=== PATIENT | male | born 1965 | race Caucasian/White ===

== ENCOUNTER 2018-05-30 20:42 | Observation (INO) | payer OTHER ==
[2018-05-30] MEDS ORDERED: ASPIRIN CHEW 81 MG TABLET PO STA (21:02)
--- NOTE | 2018-05-30 21:05 | ED Physician Documentation ---
PD HPI CHEST PAIN - Stated complaint Stated Complaint: CHEST PX - Chief complaint Chief Complaint: Cardiac - History obtained from History obtained from: Patient - History of Present Illness Timing - onset: Other (This is a 53-year-old gentleman with history of single- vessel bypass to either of the left main or LAD about 3 years ago with a significant positive family history of coronary disease over the last 2 days has had substernal chest pressure radiating to the right shoulder but not the back that is worse with exertion and deep breathing. He is been inexplicably short of breath and fatigued with this as well and has had some sweats but no nausea. He is pain-free at this juncture.) Review of Systems Constitutional: reports: Reviewed and negative Ears: reports: Reviewed and negative Nose: reports: Reviewed and negative Respiratory: reports: Reviewed and negative GI: reports: Reviewed and negative : reports: Reviewed and negative PD PAST MEDICAL HISTORY - Past Medical History Past Medical History: Yes Cardiovascular: Coronary artery disease, Angina Endocrine/Autoimmune: HyPOthyroidism GI: GERD - Past Surgical History Past Surgical History: Yes Cardiovascular: CABG - Present Medications Home Medications: Ambulatory Orders Medication Instructions Recorded Confirmed Atorvastatin [Lipitor] 10 mg PO DAILY 05/30/18 05/30/18 Levothyroxine [Synthroid] 75 mcg PO QDAC 05/30/18 05/30/18 Metoprolol Tartrate 25 mg PO BID 05/30/18 05/30/18 Omeprazole 20 mg PO DAILY 05/30/18 05/30/18 - Allergies Allergies/Adverse Reactions: Allergies Allergy/AdvReac Type Severity Reaction Status Date / Time No Known Drug Allergies Allergy Verified 05/30/18 20:46 - Social History Does the pt smoke?: No Smoking Status: Never smoker Does the pt drink ETOH?: No Does the pt have substance abuse?: No - Family History Family history: reports: Non contributory - Immunizations Immunizations are current?: No PD ED PE NORMAL - Vitals Vital signs reviewed: Yes - General General: Alert and oriented X 3 (Tall and lean, frequent stuttering) - HEENT HEENT: PERRL, EOMI - Neck Neck: Supple, no meningeal sign, No bony TTP - Cardiac Cardiac: RRR, No murmur - Respiratory Respiratory: No respiratory distress, Clear bilaterally - Abdomen Abdomen: Soft, Non tender - Back Back: No CVA TTP, No spinal TTP - Derm Derm: Normal color, Warm and dry - Extremities Extremities: No edema, No calf tenderness / cord - Neuro Neuro: Alert and oriented X 3, Normal speech - Psych Psych: Normal mood, Normal affect Results - Vitals Vitals: Vital Signs - 24 hr 05/30/18 05/30/18 05/30/18 20:46 21:04 21:31 Temperature 36.4 C L Heart Rate 72 72 65 Respiratory 20 14 20 Rate Blood Pressure 118/80 135/84 H 117/81 H O2 Saturation 100 96 97 Oxygen O2 Source Room air - EKG (time done) 2053 Rate: Rate (enter#) (73) Rhythm: NSR [place]: Normal Intervals: Normal [place] QRS: Normal Ischemia: Normal ST segments Computer interpretation: Agree with computer - Labs Labs: Laboratory Tests 05/30/18 05/30/18 05/30/18 20:58 20:58 20:58 WBC 11.7 H RBC 5.18 Hgb 16.1 Hct 46.6 MCV 89.9 MCH 31.0 MCHC 34.5 RDW 13.2 Plt Count 273 MPV 7.2 L Neut # (Auto) 7.1 H Lymph # (Auto) 2.9 Jay # (Auto) 0.8 Eos # (Auto) 0.8 H Baso # (Auto) 0.1 Absolute Nucleated RBC 0.00 Nucleated RBC % 0.0 Sodium 138 Potassium 3.5 Chloride 100 L Carbon Dioxide 29 Anion Gap 9.0 BUN 19 Creatinine 1.1 Estimated GFR (MDRD) 70 L Glucose 127 H Calcium 9.0 Total Bilirubin 0.5 AST 29 ALT 38 Alkaline Phosphatase 86 Total Creatine Kinase 96 CK-MB (CK-2) 1.0 Troponin I < 0.04 Total Protein 7.6 Albumin 4.2 Globulin 3.4 Albumin/Globulin Ratio 1.2 Lipase 30 PD MEDICAL DECISION MAKING - ED course ED course: This is a 53-year-old gentleman with known coronary disease, history of single- vessel coronary bypass with exertional chest pain but also chest pain worse with deep breathing for the last 2 days with negative biomarkers and nonischemic EKG. He deserves a formal rule out plus or minus stress. [facility], [facility] no [facility] available there. Spoke with Dr. Moreau for observation here at 9:42 PM. Departure - Departure Disposition: ED Place in Observation Clinical Impression: Chest pain Qualifiers: Chest pain type: unspecified Qualified Code(s): R07.9 - Chest pain, unspecified Condition: Stable
[2018-05-30 21:16] LABS: BASOPHILS # (AUTO) 0.1 10^3/uL (0.0-0.1); BASOPHILS % (AUTO) 0.8 %; EOSINOPHILS # (AUTO) 0.8 10^3/uL (0.0-0.7); EOSINOPHILS % (AUTO) 6.9 %; HGB - HEMOGLOBIN 16.1 g/dL (14.0-18.0); LYMPHOCYTES # (AUTO) 2.9 10^3/uL (1.5-3.5); LYMPHOCYTES % (AUTO) 24.6 %; MEAN CORPUSCULAR HGB CONC 34.5 g/dL (32.0-36.0); MEAN CORPUSCULAR VOLUME 89.9 fL (80.0-94.0); MEAN PLATELET VOLUME 7.2 fL (7.4-11.4); MONOCYTES # (AUTO) 0.8 10^3/uL (0.0-1.0); MONOCYTES % (AUTO) 6.8 %; NEUTROPHILS # (AUTO) 7.1 10^3/uL (1.5-6.6); NEUTROPHILS % (AUTO) 60.9 %; PLT - PLATELET COUNT 273 10^3/uL (130-450); RED BLOOD COUNT 5.18 10^6/uL (4.70-6.10); RED CELL DISTRIBUTION WIDTH 13.2 % (12.0-15.0); WHITE BLOOD COUNT 11.7 x10^3/uL (4.8-10.8)
--- NOTE | 2018-05-30 21:19 | XRAY Report ---
Reason: chest pain Procedure Date: 05/30/2018 Accession Number: [id number] / [id number] Procedure: XR - Chest 1 View X-Ray CPT Code: 65971 FULL RESULT: EXAM: CHEST RADIOGRAPHY EXAM DATE: 05/30/2018 09:11 PM. CLINICAL HISTORY: Chest pain. COMPARISON: None. TECHNIQUE: 1 view. FINDINGS: Lungs/Pleura: No focal opacities evident. No pleural effusion. No pneumothorax. Mediastinum: Heart size is normal. Prior sternotomy noted. Other: There is a mid left clavicle fracture. IMPRESSION: Negative chest RADIA
[2018-05-30 21:28] LABS: ALBUMIN 4.2 g/dL (3.2-5.5); ALBUMIN/GLOBULIN RATIO 1.2 (1.0-2.2); BILIRUBIN,TOTAL 0.5 mg/dL (0.2-1.0); CREATININE 1.1 mg/dL (0.6-1.2); TOTAL PROTEIN 7.6 g/dL (6.7-8.2)
[2018-05-30 21:33] LABS: TROPONIN I < 0.04 ng/mL (<0.49)
[2018-05-30] MEDS ORDERED: SODIUM CHLORIDE FLUSH 0.9% 10 ML SYRINGE IVP PRN (22:25)
--- NOTE | 2018-05-30 23:10 | HISTORY & PHYSICAL EXAMINATION ---
Chief Complaint - Chief Complaint Chief Complaint: chest pain History of Present Illness - Admitted From Admitted From:: [facility] ED - History Obtained From Records Reviewed: yes History obtained from: patient - History of Present Illness HPI Comment/Other: Patient seen on 05/30/18 at 21:55pm Patient is a 53 y/o male with a significant history of a CAD s/p CABG in March of 2015 who presented to the ED with complain of chest pain/pressure. He says it feels like being bear-hugged for the past few days. He has also been more tired lately and gets dyspneic with exertion. For example climbing into his bed which he described as tall. He reports a sharp pain on the left side below his ribs. The pain resolves with rest. There is no radiation to the pain. He took a nitroglycerin tab at home with no relief. The pain/pressure resolved by the time he presented to the ED. EKG done in the ED was unremarkable for any acute coronary event. His Troponin was also negative. He is being admitted for further evaluation. He denied abd pain, nausea, vomiting or diarrhea. No fever or chills. No lower extremity edema. He denied headaches problems with balance. He stutters which he explains only happens when he is under increased stress. He has been more stressed lately as a result of increased demands at work. His stuttering began in relation to PTSD. He is a . 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 Mother: Hx of 14 stent: cardiac and peripheral vascular. Maternal grandfather: at age 53 from an PR Social History Notes: Lives at home with family. 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 Is independent of activities of daily living. Has 3 grandchildren - Substance History Use: Uses substance without health or social issues: Tobacco (chews tobacco) - POLST Patient has POLST: No POLST Status: Full Code Meds/Allgy - Home Medications Home Medications: Ambulatory Orders Medication Instructions Recorded Confirmed Atorvastatin [Lipitor] 10 mg PO DAILY 05/30/18 05/30/18 Levothyroxine [Synthroid] 75 mcg PO QDAC 05/30/18 05/30/18 Metoprolol Tartrate 25 mg PO BID 05/30/18 05/30/18 Omeprazole 20 mg PO DAILY 05/30/18 05/30/18 - Allergies Allergies/Adverse Reactions: Allergies Allergy/AdvReac Type Severity Reaction Status Date / Time No Known Drug Allergies Allergy Verified 05/30/18 20:46 Review of Systems - Constitutional Constitutional: reports: Fatigue. denies: Fever, Chills - Eyes Eyes: reports: Corrective lenses. denies: Amaurosis, Blurred vision, Vision loss, Dipolpia - Ears, Nose & Throat Ears, Nose & Throat: denies: Vertigo - Cardiovascular Cariovascular: reports: Chest pain, Exertional dyspnea, Decr. exercise tolerance. denies: Irregular heart rate, Palpitations, Edema, Lightheadedness, Syncope, Orthopnea - Respiratory Respiratory: reports: SOB with exertion. denies: Cough, Sputum production, Wheezing, Snoring, Pleuritic pain - Gastrointestinal Gastrointestinal: reports: Reflux/heartburn. denies: Abdominal pain, Abdominal distention, Constipation, Diarrhea, Nausea, Vomiting, Coffee grounds emesis - Genitourinary Genitourinary: denies: Dysuria, Frequency, Urgency, Hematuria - Musculoskeletal Musculoskeletal: denies: Muscle pain, Back pain, Muscle aches, Stiffness, Joint pain - Integumentary Integumentary: denies: Rash, Lesions, Dryness - Neurological Neurological: denies: General weakness, Headache, Dizziness, Numbness, Abnormal gait - Psychiatric Psychiatric: denies: Anxiety, Suicidal - Endocrine Endocrine: denies: Polyuria, Polydypsia - Hematologic/Lymphatic Hematologic/Lymphatic: denies: Anemia, Bruising, Petechiae Prior Level of Functionality: Lives at home with family 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 negative: Wheezes, Rales, Rhonchi Cardiovascular: positive: Regular rate & rhythm, No murmur Abdomen: positive: Non-tender, No organomegaly, Nml bowel sounds, No distention. negative: Guarding Back: positive: Nml inspection Skin: positive: Color nml, No rash, Warm, Dry. negative: Cyanosis Extremities: positive: Non-tender, Full ROM, Nml appearance, No pedal edema Neurologic/Psychiatric: positive: Oriented x3, Motor nml, Sensation nml, Slurred/abnml speech (stuttering) Conclusion/Plan - Problem List (1) Chest pain Conclusion/Plan: Trend troponin X2 more. If negative, proceed with stress test Given full dose aspirin in the ED. Will continue daily On telemetry. Hold morning metoprolol dose in anticipation of stress test Hx of CAD with CABG 3yrs ago. 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 Last stress test Jan 2015 Qualifiers: Chest pain type: unspecified Qualified Code(s): R07.9 - Chest pain, unspecified (2) CAD (coronary artery disease) Conclusion/Plan: On metoprolol (not always compliant) Aspirin full dose ordered daily On atorvastatin Qualifiers: Coronary Disease-Associated Artery/Lesion type: bypass graft, autologous vein (3) Hyperlipidemia Conclusion/Plan: On atorvastatin (4) Hypothyroidism Conclusion/Plan: On synthroid (5) GERD (gastroesophageal reflux disease) Conclusion/Plan: Protonix ordered - Lab Results Fish Bones: 05/30/18 20:58 05/30/18 20:58 Core Measures - Anticipated LOS I expect patient to be DC'd or transferred within 96 hours.: Yes - DVT/VTE - Prophylaxis VTE/DVT Device ordered at admit?: Yes VTE/DVT Prophylaxis med ordered at admit?: Yes - AMI - Statin at Admit Aspirin Prescribed on Admit: Yes
[2018-05-31] MEDS: SODIUM CHLORIDE FLUSH 0.9% 10 ML SYRINGE IVP SCH ×3 (03:17→17:01)
[2018-05-31 03:31] LABS: BASOPHILS % (AUTO) 0.4 %; EOSINOPHILS # (AUTO) 0.8 10^3/uL (0.0-0.7); EOSINOPHILS % (AUTO) 8.1 %; HGB - HEMOGLOBIN 14.9 g/dL (14.0-18.0); LYMPHOCYTES # (AUTO) 2.2 10^3/uL (1.5-3.5); LYMPHOCYTES % (AUTO) 21.1 %; MEAN CORPUSCULAR HEMOGLOBIN 30.1 pg (27.0-31.0); MEAN CORPUSCULAR HGB CONC 33.3 g/dL (32.0-36.0); MEAN CORPUSCULAR VOLUME 90.3 fL (80.0-94.0); MEAN PLATELET VOLUME 7.1 fL (7.4-11.4); MONOCYTES # (AUTO) 0.7 10^3/uL (0.0-1.0); MONOCYTES % (AUTO) 7.1 %; NEUTROPHILS # (AUTO) 6.6 10^3/uL (1.5-6.6); NEUTROPHILS % (AUTO) 63.3 %; PLT - PLATELET COUNT 245 10^3/uL (130-450); RED BLOOD COUNT 4.94 10^6/uL (4.70-6.10); RED CELL DISTRIBUTION WIDTH 13.2 % (12.0-15.0); WHITE BLOOD COUNT 10.5 x10^3/uL (4.8-10.8)
[2018-05-31 03:38] LABS: CALCIUM 8.8 mg/dL (8.5-10.3); CREATININE 1.1 mg/dL (0.6-1.2)
[2018-05-31] MEDS ORDERED: PANTOPRAZOLE 40 MG TABLET PO SCH (07:00)
[2018-05-31] MEDS ORDERED: ASPIRIN 325 MG TABLET PO SCH (08:00)
[2018-05-31] MEDS ORDERED: POLYETHYLENE GLYCOL 3350 17 GM PACKET PO SCH (09:00)
[2018-05-31] MEDS ORDERED: ENOXAPARIN 40 MG/0.4 ML SYRINGE SUBQ SCH (09:00)
[2018-05-31] MEDS ORDERED: METOPROLOL TARTRATE 25 MG TABLET PO SCH (13:00)
--- NOTE | 2018-05-31 14:09 | CARDIAC PROCEDURE NOTE ---
DATE OF SERVICE: 05/31/2018 Physician: Liseth Haq MD INDICATION: Chest pain. CARDIAC RISK FACTORS: Male gender, family history of early coronary disease, hyperlipidemia. The patient also has a history of known CAD with prior CABG. DESCRIPTION OF PROCEDURE: After signing informed consent, the patient underwent a Amanuel protocol treadmill stress test with nuclear myocardial perfusion imaging. RESTING HEART RATE: 66. Peak heart rate: 111 (66% predicted maximum heart rate for age). RESTING BLOOD PRESSURE: 114/80. Blood pressure at the end of stage 1: 135/65. Blood pressure in stage 2: dropped to 125/65 (abnormal hemodynamic response). The patient exercised for 5 minutes and 48 seconds on a Amanuel protocol treadmill stress test. He developed his typical chest discomfort "down his sternum at the scar site" at the beginning of stage 2, and he rated this 1/10. This symptom increased to 2/10 in stage II. When the blood pressure drop occurred, and with 2/10 chest pain, the exercise was stopped. He achieved 66% PMHR and 7 METS. EKG AT REST: Normal sinus rhythm, LVH with small inferior Q waves and left IVCD. EKG AT PEAK: No new ischemic ST segment changes by EKG criteria. SUMMARY 1. Poor exercise tolerance. 2. Abnormal blood pressure response to exercise, which is concerning for left main or triple vessel coronary artery disease. 3. No ischemic changes, by electrocardiogram criteria during this treadmill stress test, at 66% predicted maximum heart rate for age. 4. Nuclear images reported separately. TD: 05/31/2018 13:47 LIZETH
--- NOTE | 2018-05-31 14:16 | Nuclear Medicine Report ---
Reason: chest pain/pressure Procedure Date: 05/31/2018 Accession Number: [id number] / [id number] Procedure: NM - Myocardial Perfusion STR/RST CPT Code: FULL RESULT: EXAM: SINGLE-ISOTOPE EXERCISE STRESS TEST. SINGLE-ISOTOPE AND ONE-DAY REST/STRESS MYOCARDIAL PERFUSION SCANS WITH TOMOGRAPHIC IMAGING, QUANTITATIVE ANALYSIS, WALL MOTION ANALYSIS AND CALCULATION OF EJECTION FRACTION. EXAM DATE: 05/31/2018 01:35 PM. CLINICAL HISTORY: Chest pain/pressure. COMPARISON: None available. TECHNIQUE: A rest myocardial perfusion scan was done with tomography after the intravenous administration of 10.8 mCi Tc-99m sestamibi. After an appropriate delay, a treadmill exercise stress was performed according to department protocol. The patient exercised for 7 minutes and 42 seconds. The maximum heart rate was 111 bpm, which was 66% of the maximum predicted heart rate of 166 bpm. At approximately peak heart rate, 39.6 mCi of Tc-99m sestamibi was injected for stress myocardial perfusion scan. Motion correction was applied when appropriate. Gated tomographic images were obtained for wall motion analysis and computation of left ventricular ejection fraction. FINDINGS: On visual analysis, there is a small, mild apical perfusion defect which appears fixed between the rest and stress images allowing for slight differences in orientation of the processed images. No convincing reversible perfusion defects. Computer analysis. Summed stress score 3 Summed rest score 2 Summed difference score 1 Wall motion analysis demonstrates no focal wall motion abnormality The left ventricular end-diastolic volume is 54 cc. The left ventricular end-systolic volume is 14 cc. The left ventricular ejection fraction is calculated to be 75%. IMPRESSION: 1. The patient did not achieve adequate stress and this may affect the accuracy of this study. 2. Small mild fixed apical perfusion defect. No convincing significant reversible perfusion defects. 3. Normal left ventricular ejection fraction of 75%. 4. Normal segmental and global wall motion. 5. Normal left ventricular cavity size, no change with stress. 6. Based on computer analysis, normal study with no ischemia. Please correlate findings with stress ECG tracings and procedure notes. RADIA
--- NOTE | 2018-05-31 15:39 | Discharge Plan ---
Discharge Plan Disposition: 01 Home, Self Care Condition: Good Prescriptions: Nitroglycerin [Nitrostat] 0.4 mg SL Q5MIN PRN #30 tablet PRN Reason: Angina Aspirin [Adult Aspirin Regimen] 81 mg PO DAILY #30 tablet. Atorvastatin Calcium 80 mg PO DAILY #30 tablet Isosorbide Mononitrate ER [Imdur] 30 mg PO DAILY #30 tablet Diet: Cardiac Activity Restrictions: NO working, no lifting, rest and relax until after Cardiology follow up Additional Instructions or Follow Up instructions: You were admitted overnight for complaints of chest pain. Your myocardial perfusion scan was not completely normal, so for clarification, a call was made to your Supervisor Mending. Dr. Berto Stephenson spoke with Dr. Haq, who performed your stress test. It has been determined that you have new changes indicating a new heart attack or (myocardial infarction). You must stay off work, no vigorous walking, no heavy lifting! We want you to take it easy and rest. All cardiac enzymes per lab shows no evidence of heart damage today, but this heart attack may have happened happened up to 3 days ago. Please take nitroglycerin sublingual (under your tongue) as needed for any further episodes of chest pain. Please take a daily baby aspirin, the maximum dose of Atorvastatin, and a medication like nitroglycerin called IMDUR. Some people get dull headaches when they first start IMDUR, so it would be fine to take tylenol for the first few days while you get used to it. Please seek prompt follow up with your Cardiology department and they stated that they would be calling you. They will discuss options with you as far as next course of treatment. I have written you a work excuse, but if you need additional forms completed, please ask me even after you are discharged. If you have uncontrolled, or worsening episodes of chest pain, please report back to the ED or nearest medical facility. Follow-Up Care: [facility] - [facility] No Smoking: If you smoke, Please STOP! Call for help.
[2018-05-31 15:58] VITALS: BP 100/58
--- NOTE | 2018-05-31 19:32 | DISCHARGE SUMMARY ---
Discharge Summary Admit Date: 05/30/18 Discharge Date: 05/31/18 Discharging Provider: SHAWN Emmanuel Primary Care Provider: LYNN provider Code Status: Attempt Resuscitation Condition at Discharge: Stable Discharge Disposition: 01 Home, Self Care - DIAGNOSES Admission Diagnoses: Chest pain, unspecified (R07.9) Athscl heart disease of [place] coronary artery w/o ang pctrs (I25.10) Hyperlipidemia, unspecified (E78.5) Hypothyroidism, unspecified (E03.9) Gastro-esophageal reflux disease without esophagitis (K21.9) Discharge Diagnoses with Status of Each Condition: Myocardial infarction, septal, acute (I21.29) new on this admission Chest pain (R07.9) resolved, stable, medically managed with Imdur CAD (coronary artery disease) (I25.10) chronic, stable Stable angina (I20.8) chronic, stable Hyperlipidemia (E78.5) chronic, stable Hypothyroidism (E03.9) chronic, stable GERD (gastroesophageal reflux disease) (K21.9) chronic, stable Hypertension (I10) chronic, stable - HPI History of Present Illness: HPI per Dr. Moreau: Patient seen on 05/30/18 at 21:55pm Patient is a 53 y/o male with a significant history of a CAD s/p CABG in March of 2015 who presented to the ED with complain of chest pain/pressure. He says it feels like being bear-hugged for the past few days. He has also been more tired lately and gets dyspneic with exertion. For example climbing into his bed which he described as tall. He reports a sharp pain on the left side below his ribs. The pain resolves with rest. There is no radiation to the pain. He took a nitroglycerin tab at home with no relief. The pain/pressure resolved by the time he presented to the ED. EKG done in the ED was unremarkable for any acute coronary event. His Troponin was also negative. He is being admitted for further evaluation. He denied abd pain, nausea, vomiting or diarrhea. No fever or chills. No lower extremity edema. He denied headaches problems with balance. He stutters which he explains only happens when he is under increased stress. He has been more stressed lately as a result of increased demands at work. His stuttering began in relation to PTSD. He is a . 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 - HOSPITAL COURSE Hospital Course: The patient had a recurrence of his chest pain during his treadmill stress test with a drop in blood pressure and final reports could not rule out if the defects were new or old. His primary cardiology team was contacted through the [place] and spoke with Dr. Yeung to determine the age of the septal defect that was found. It was determined that this defect was in fact new so the patient was told that he had a recent heart attack since his troponins were all negative. He became tearful, but he was reminded that despite this his EF has not changed. His cardiology team recommended medical management and that they would be reaching out to the patient in the next few days. Emphasis was made both to the patient and to his to have low activity without working. He was started on Imdur and had a resolution of his chest pain at the time of discharge. A work excuse note was provided. - ALLERGIES Allergies/Adverse Reactions: Allergies Allergy/AdvReac Type Severity Reaction Status Date / Time No Known Drug Allergies Allergy Verified 05/30/18 20:46 - MEDICATIONS Home Medications: Ambulatory Orders Medication Instructions Recorded Confirmed Levothyroxine [Synthroid] 75 mcg PO QDAC 05/30/18 05/30/18 Metoprolol Tartrate 25 mg PO BID 05/30/18 05/30/18 Omeprazole 20 mg PO DAILY 05/30/18 05/30/18 Aspirin [Adult Aspirin Regimen] 81 mg PO DAILY #30 tablet. 05/31/18 Atorvastatin Calcium 80 mg PO DAILY #30 tablet 05/31/18 Isosorbide Mononitrate ER [Imdur] 30 mg PO DAILY #30 tablet 05/31/18 Nitroglycerin [Nitrostat] 0.4 mg SL Q5MIN PRN #30 tablet 05/31/18 - PHYSICAL EXAM AT DISCHARGE General Appearance: positive: No acute distress, Alert, Anxious Eyes Bilateral: positive: PERRL ENT: positive: ENT inspection nml, Pharynx nml, No signs of dehydration Neck: positive: Nml inspection, Thyroid nml, No JVD, Trachea midline Respiratory: positive: Chest non-tender, No respiratory distress, Breath sounds nml Cardiovascular: positive: Regular rate & rhythm, No gallop, Systolic murmur Peripheral Pulses: positive: 2+ Abdomen: positive: Non-tender, No organomegaly, Nml bowel sounds Back: positive: Nml inspection Skin: positive: Color nml, No rash, Warm, Dry Extremities: positive: Non-tender, Full ROM, Nml appearance, No pedal edema Neurologic/Psychiatric: positive: Oriented x3, CN's nml (2-12), Motor nml, Sensa tion nml, Mood/affect nml Reflexes: Bicep (R): 3+, Bicep (L): 3+ - LABS Result Diagrams: 05/31/18 03:20 05/31/18 03:20 - DIAGNOSTIC IMAGING Diagnostic Imaging Results: Final report reviewed Diagnostic Imaging Results Comments: EXAM: CHEST RADIOGRAPHY EXAM DATE: 05/30/2018 09:11 PM IMPRESSION: Negative chest EXAM: SINGLE-ISOTOPE EXERCISE STRESS TEST. SINGLE-ISOTOPE AND ONE-DAY REST/STRESS MYOCARDIAL PERFUSION SCANS WITH TOMOGRAPHIC IMAGING, QUANTITATIVE A NALYSIS, WALL MOTION ANALYSIS AND CALCULATION OF EJECTION FRACTION. EXAM DATE: 05/31/2018 01:35 PM. CLINICAL HISTORY: Chest pain/pressure. COMPARISON: None available. TECHNIQUE: A rest myocardial perfusion scan was done with tomography after the intravenous administration of 10.8 mCi Tc-99m sestamibi. After an appropriate delay, a treadmill exercise stress was performed according to department protocol. The patient exercised for 7 minutes and 42 seconds. The maximum heart rate was 111 bpm, which was 66% of the maximum predicted heart rate of 166 bpm. At approximately peak heart rate, 39.6 mCi of Tc-99m sestamibi was injected for stress myocardial perfusion scan. Motion correction was applied when appropriate. Gated tomographic images were obtained for wall motion analysis and computation of left ventricular ejection fraction. FINDINGS: On visual analysis, there is a small, mild apical perfusion defect which appears fixed between the rest and stress images allowing for slight differences in orientation of the processed images. No convincing reversible perfusion defects. Computer analysis. Summed stress score 3 Summed rest score 2 Summed difference score 1 Wall motion analysis demonstrates no focal wall motion abnormality The left ventricular end-diastolic volume is 54 cc. The left ventricular end- systolic volume is 14 cc. The left ventricular ejection fraction is calculated to be 75. IMPRESSION: 1. The patient did not achieve adequate stress and this may affect the accuracy of this study. 2. Small mild fixed apical perfusion defect. No convincing significant reversible perfusion defects. 3. Normal left ventricular ejection fraction of 75%. 4. Normal segmental and global wall motion. 5. Normal left ventricular cavity size, no change with stress. 6. Based on computer analysis, normal study with no ischemia. Please correlate findings with stress ECG tracings and procedure notes. - FOLLOW UP Follow Up: Disposition: 01 Home, Self Care Condition: Good Prescriptions: Nitroglycerin [Nitrostat] 0.4 mg SL Q5MIN PRN #30 tablet PRN Reason: Angina Aspirin [Adult Aspirin Regimen] 81 mg PO DAILY #30 tablet. Atorvastatin Calcium 80 mg PO DAILY #30 tablet Isosorbide Mononitrate ER [Imdur] 30 mg PO DAILY #30 tablet Diet: Cardiac Activity Restrictions: NO working, no lifting, rest and relax until after Cardiology follow up Additional Instructions or Follow Up instructions: You were admitted overnight for complaints of chest pain. Your myocardial perfusion scan was not completely normal, so for clarification, a call was made to your [facility] [employer]. Dr. Berto Stephenson spoke with Dr. Haq, who performed your stress test. It has been determined that you have new changes indicating a new heart attack or (myocardial infarction). You must stay off work, no vigorous walking, no heavy lifting! We want you to take it easy and rest. All cardiac enzymes per lab shows no evidence of heart damage today, but this heart attack may have happened happened up to 3 days ago. Please take nitroglycerin sublingual (under your tongue) as needed for any further episodes of chest pain. Please take a daily baby aspirin, the maximum dose of Atorvastatin, and a medication like nitroglycerin called IMDUR. Some people get dull headaches when they first start IMDUR, so it would be fine to take tylenol for the first few days while you get used to it. Please seek prompt follow up with your Cardiology department and they stated that they would be calling you. They will discuss options with you as far as next course of treatment. I have written you a work excuse, but if you need additional forms completed, please ask me even after you are discharged. If you have uncontrolled, or worsening episodes of chest pain, please report back to the ED or nearest medical facility. - TIME SPENT Time Spent in Discharge (Minutes): 50
== END 2018-05-31 16:50 | disposition home or self-care (01) ==
LOC: ED 20:42 → MS2 22:25
PROVIDERS: ADMIT Internal Medicine; ATTEND Nurse Practitioner
DX: I21.29 ST elevation (STEMI) myocardial infarction involving other sites (principal); I10 Essential (primary) hypertension; I25.118 Atherosclerotic heart disease of native coronary artery with other forms of angina pectoris; Z95.1 Presence of aortocoronary bypass graft; E78.5 Hyperlipidemia, unspecified; E03.9 Hypothyroidism, unspecified; K21.9 Gastro-esophageal reflux disease without esophagitis; F43.10 Post-traumatic stress disorder, unspecified; Z82.49 Family history of ischemic heart disease and other diseases of the circulatory system
CPT/HCPCS: 36415; 71045; 78452; 80048; 80053; 82550; 82553; 83690; 84484; 85025; 93005; 93017; 99284; A9270; A9500; G0378

== ENCOUNTER 2019-05-15 15:54 | Emergency (ER) | payer OTHER ==
--- NOTE | 2019-05-15 16:15 | ED Physician Documentation ---
PD HPI CHEST PAIN - Stated complaint Stated Complaint: CP - Chief complaint Chief Complaint: Cardiac - History obtained from History obtained from: Patient - History of Present Illness Timing - onset: How many weeks ago (1 1/2) Timing - onset during: Light activity Timing - duration: Hours Timing - details: Abrupt onset. No: Still present Quality: Pressure, Aching Location: Substernal (onset with light activity of left chest pain 1 1/2 weeks ago, lasting few hours then improved. Has had few episodes of light exertional chest tightness since, with worse feeling today during activity. Took 2 ntg with improvement of the chest pain.), Left chest Radiation: Left upper extremity Improved by: Nitro Worsened by: No: Inspiration, Eating, Movement Associated symptoms: Shortness of air, Feeling faint / dizzy, General Weakness Similar symptoms before: Diagnosis (he says he had similar feeling of chest tightness and lightheaded prior to his getting CABG in 2014.) Recently seen: No: Clinic Review of Systems Constitutional: denies: Fever, Chills Nose: denies: Rhinorrhea / runny nose, Congestion Throat: denies: Sore throat Respiratory: denies: Dyspnea, Cough GI: denies: Vomiting, Diarrhea, Bloody / black stool Skin: denies: Rash, Lesions Musculoskeletal: denies: Neck pain, Back pain, Extremity swelling Neurologic: denies: Focal weakness, Near syncope PD PAST MEDICAL HISTORY - Past Medical History Cardiovascular: Coronary artery disease, Angina Neuro: Other Endocrine/Autoimmune: HyPOthyroidism GI: GERD Psych: Post traumatic stress disorder - Past Surgical History 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 05/31/18 Atorvastatin Calcium 80 mg PO DAILY #30 tablet 05/31/18 Isosorbide Mononitrate ER [Imdur] 30 mg PO DAILY #30 tablet 05/31/18 Nitroglycerin [Nitrostat] 0.4 mg SL Q5MIN PRN #30 tablet 05/31/18 Isosorbide Mononitrate ER [Imdur] 30 mg PO DAILY #10 tablet 05/15/19 - Allergies Allergies/Adverse Reactions: Allergies Allergy/AdvReac Type Severity Reaction Status Date / Time No Known Drug Allergies Allergy Verified 05/15/19 16:00 - Social History Does the pt smoke?: No Smoking Status: Never smoker Does the pt drink ETOH?: No Does the pt have substance abuse?: No - Immunizations Immunizations are current?: No - POLST Patient has POLST: No POLST Status: Full Code PD ED PE NORMAL - Vitals Vital signs reviewed: Yes - General General: Alert and oriented X 3, No acute distress, Well developed/nourished - HEENT HEENT: Moist mucous membranes, Pharynx benign - Neck Neck: Supple, no meningeal sign, No adenopathy - Cardiac Cardiac: RRR, No murmur, Other (no chestwall tenderness) - Respiratory Respiratory: Clear bilaterally - Abdomen Abdomen: Normal bowel sounds, Non tender - Back Back: No CVA TTP - Derm Derm: Normal color, Warm and dry - Extremities Extremities: Normal ROM s pain, No edema, No calf tenderness / cord - Neuro Neuro: Alert and oriented X 3, No motor deficit, Normal speech Results - Vitals Vitals: Vital Signs - 24 hr 05/15/19 05/15/19 05/15/19 16:00 16:35 16:55 Temperature 36.5 C Heart Rate 100 99 74 Respiratory 16 14 16 Rate Blood Pressure 109/81 H 159/115 H 127/74 O2 Saturation 98 97 100 05/15/19 05/15/19 18:22 19:20 Temperature 36.6 C Heart Rate 76 72 Respiratory 19 20 Rate Blood Pressure 131/89 H 132/98 H O2 Saturation 99 100 Oxygen O2 Source Room air - EKG (time done) 15:59 Rate: Rate (enter#) (101) Rhythm: NSR [place]: Normal Intervals: Normal [place] QRS: Normal Ischemia: Normal ST segments. No: ST elevation c/w ischemia, ST depression - Labs Labs: Laboratory Tests 05/15/19 05/15/19 05/15/19 16:12 16:12 16:12 WBC 10.0 RBC 5.19 Hgb 16.1 Hct 46.8 MCV 90.2 MCH 31.0 MCHC 34.4 RDW 12.3 Plt Count 258 MPV 9.0 Neut # (Auto) 7.8 H Lymph # (Auto) 1.4 L [place] # (Auto) 0.5 Eos # (Auto) 0.2 Baso # (Auto) 0.1 Absolute Nucleated RBC 0.00 Nucleated RBC % 0.0 Sodium 135 Potassium 3.7 Chloride 99 L Carbon Dioxide 26 Anion Gap 10.0 BUN 25 H Creatinine 1.2 Estimated GFR (MDRD) 63 L Glucose 146 H Calcium 8.9 Total Bilirubin 1.1 H AST 25 ALT 26 Alkaline Phosphatase 81 Troponin I High Sens 2.7 B-Natriuretic Peptide Total Protein 7.7 Albumin 4.4 Globulin 3.3 Albumin/Globulin Ratio 1.3 Lipase 27 05/15/19 16:12 WBC RBC Hgb Hct MCV MCH MCHC RDW Plt Count MPV Neut # (Auto) Lymph # (Auto) [place] # (Auto) Eos # (Auto) Baso # (Auto) Absolute Nucleated RBC Nucleated RBC % Sodium Potassium Chloride Carbon Dioxide Anion Gap BUN Creatinine Estimated GFR (MDRD) Glucose Calcium Total Bilirubin AST ALT Alkaline Phosphatase Troponin I High Sens B-Natriuretic Peptide 9 Total Protein Albumin Globulin Albumin/Globulin Ratio Lipase - Rads (name of study) chest xray Radiology: Prelim report reviewed (no acte process), See rad report PD MEDICAL DECISION MAKING - ED course Complexity details: considered differential, d/w patient, d/w [employer] consultant (I tried to contact oriental medicine practitioner Cardio at [facility], but they had not called back at about 1 1/2 hours after tryiing to contact. Will increase pt beta brayan and add Imdur as concern for anginal symptoms in patient with known CAD and prior CABG.) Departure - Departure Disposition: 01 Home, Self Care Clinical Impression: Progressive angina Chest pain Qualifiers: Chest pain type: precordial pain Qualified Code(s): R07.2 - Precordial pain Condition: Stable Record reviewed to determine appropriate education?: Yes Instructions: ED Chest Pain Angina Stable Follow-Up: Sun Nguyễn ARNP [Primary Care Provider] - [facility] [Provider Group] Prescriptions: Isosorbide Mononitrate ER [Imdur] 30 mg PO DAILY #10 tablet Comments: Continue current medications. Add isosorbide dinitrate daily as a long-acting nitrate. Hold it if your blood pressure is less than 1 15-1 20. Contact your phthalic acid purifier at the [facility] in the next couple of days. Return if worsening symptoms. Your EKG and blood tests are normal without signs of acute heart injury. It does sound likely or concerning for angina or diminished blood flow to the he art. The beta-brayan you are on along with the long-acting nitrate should help reduce that pending further testing such as nuclear stress testing or even potential catheterization depending upon what your phthalic acid purifier feels. Discharge Date/Time: 05/15/19 19:30
[2019-05-15 16:30] LABS: BASOPHILS # (AUTO) 0.1 10^3/uL (0.0-0.1); BASOPHILS % (AUTO) 0.8 %; EOSINOPHILS # (AUTO) 0.2 10^3/uL (0.0-0.7); EOSINOPHILS % (AUTO) 1.9 %; HGB - HEMOGLOBIN 16.1 g/dL (14.0-18.0); LYMPHOCYTES # (AUTO) 1.4 10^3/uL (1.5-3.5); LYMPHOCYTES % (AUTO) 14.3 %; MEAN CORPUSCULAR HGB CONC 34.4 g/dL (32.0-36.0); MEAN CORPUSCULAR VOLUME 90.2 fL (80.0-94.0); MONOCYTES # (AUTO) 0.5 10^3/uL (0.0-1.0); NEUTROPHILS # (AUTO) 7.8 10^3/uL (1.5-6.6); NEUTROPHILS % (AUTO) 77.5 %; PLT - PLATELET COUNT 258 10^3/uL (130-450); RED BLOOD COUNT 5.19 10^6/uL (4.70-6.10); RED CELL DISTRIBUTION WIDTH 12.3 % (12.0-15.0)
[2019-05-15] MEDS ORDERED: METOPROLOL 5 MG/5 ML VIAL IVP STA (16:32)
[2019-05-15 16:39] LABS: ALBUMIN 4.4 g/dL (3.2-5.5); ALBUMIN/GLOBULIN RATIO 1.3 (1.0-2.2); BILIRUBIN,TOTAL 1.1 mg/dL (0.2-1.0); CALCIUM 8.9 mg/dL (8.5-10.3); CREATININE 1.2 mg/dL (0.6-1.2); TOTAL PROTEIN 7.7 g/dL (6.7-8.2)
--- NOTE | 2019-05-15 16:50 | XRAY Report ---
Reason: Chest pain Procedure Date: 05/15/2019 Accession Number: [id number] / [id number] Procedure: XR - Chest 1 View X-Ray CPT Code: 58366 Final Report FULL RESULT: EXAM: CHEST RADIOGRAPHY EXAM DATE: 05/15/2019 04:35 PM. CLINICAL HISTORY: Chest pain. COMPARISON: CHEST 1 VIEW 05/30/2018 9:00 PM. TECHNIQUE: 1 view. FINDINGS: Lungs/Pleura: No focal opacities evident. No pleural effusion. No pneumothorax. Mediastinum: Heart size is normal. Previous median sternotomy is noted. Trachea is midline. Other: There is an old healed left clavicle fracture. IMPRESSION: Negative for acute cardiopulmonary abnormality. RADIA
[2019-05-15] MEDS ORDERED: ISOSORBIDE MONONITRATE ER 30 MG TABLET PO STA (19:09)
[2019-05-15 19:21] VITALS: BP 132/98
== END 2019-05-15 19:30 | disposition home or self-care (01) ==
LOC: ED 15:54
DX: I20.0 Unstable angina (principal); R07.2 Precordial pain
CPT/HCPCS: 36415; 71045; 80053; 83690; 83880; 84484; 85025; 93005; 96374; 99284; A9270

== ENCOUNTER 2022-02-16 21:50 | Emergency (ER) | payer OTHER ==
[2022-02-16] MEDS ORDERED: SODIUM CHLORIDE 0.9% 1,000 ML IV STA (22:52)
[2022-02-16] MEDS ORDERED: KETOROLAC 15 MG/ML VIAL IVP STA (22:52)
[2022-02-16 22:57] LABS: BILIRUBIN,URINE NEGATIVE (NEGATIVE); CLARITY,URINE CLOUDY (CLEAR); GLUCOSE, URINE (UA) NEGATIVE (NEGATIVE); KETONES,URINE (UA) TRACE mg/dL (NEGATIVE); LEUKOCYTE ESTERASE, URINE NEGATIVE (NEGATIVE); NITRITE,URINE NEGATIVE (NEGATIVE); OCCULT BLOOD,URINE LARGE (NEGATIVE); PROTEIN,URINE 30 mg/dL (NEGATIVE); UROBILINOGEN,URINE 1 (NORMAL) E.U./dL (NORMAL)
[2022-02-16 23:01] LABS: BACTERIA,URINE None Seen /HPF (None Seen); RBC,URINE TNTC /HPF (0-5); SQUAMOUS EPITHELIAL CELL,UR NONE SEEN (<= Few); WBC,URINE 0-3 /HPF (0-3)
[2022-02-16] MEDS ORDERED: iohexoL-300 100 ML VIAL ONE (23:15)
[2022-02-16 23:34] LABS: BASOPHILS # (AUTO) 0.1 10^3/uL (0.0-0.1); BASOPHILS % (AUTO) 0.9 %; EOSINOPHILS # (AUTO) 0.7 10^3/uL (0.0-0.7); EOSINOPHILS % (AUTO) 5.7 %; HCT - HEMATOCRIT 43.2 % (42.0-52.0); HGB - HEMOGLOBIN 14.7 g/dL (14.0-18.0); LYMPHOCYTES # (AUTO) 2.4 10^3/uL (1.5-3.5); LYMPHOCYTES % (AUTO) 18.6 %; MEAN CORPUSCULAR HEMOGLOBIN 30.5 pg (27.0-31.0); MEAN CORPUSCULAR VOLUME 89.6 fL (80.0-94.0); MONOCYTES # (AUTO) 1.2 10^3/uL (0.0-1.0); MONOCYTES % (AUTO) 9.5 %; NEUTROPHILS # (AUTO) 8.4 10^3/uL (1.5-6.6); PLT - PLATELET COUNT 262 10^3/uL (130-450); RED BLOOD COUNT 4.82 10^6/uL (4.70-6.10); RED CELL DISTRIBUTION WIDTH 12.5 % (12.0-15.0); WHITE BLOOD COUNT 12.8 x10^3/uL (4.8-10.8)
[2022-02-16 23:38] LABS: ALBUMIN 4.2 g/dL (3.2-5.5); ALBUMIN/GLOBULIN RATIO 1.4 (1.0-2.2); BILIRUBIN,TOTAL 0.5 mg/dL (0.2-1.0); CALCIUM 9.1 mg/dL (8.5-10.3); POTASSIUM 3.3 mmol/L (3.5-5.0); TOTAL PROTEIN 7.2 g/dL (6.7-8.2)
[2022-02-17] MEDS ORDERED: iohexoL-300 100 ML VIAL IVP ONE (00:19)
--- NOTE | 2022-02-17 00:33 | ED Physician Documentation ---
History of Present Illness - Stated complaint Stated Complaint: MALE - Chief complaint Chief Complaint: Abd Pain - History obtained from History obtained from: Patient - Additonal information Additional information: 56-year-old man with history of coronary bypass graft, high cholesterol, otherwise healthy, presents with 1 episode of hematuria around 7 PM this evening Followed by Blood dripping from his penile meatus since that time. He has been unable to void completely since then. Denies pain in the abdomen or back. Does endorse dysuria with attempting to urinate. 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 05/31/18 02/16/22 Atorvastatin Calcium 80 mg PO DAILY #30 tablet 05/31/18 02/16/22 Nitroglycerin [Nitrostat] 0.4 mg SL Q5MIN PRN #30 tablet 05/31/18 - Allergies Allergies/Adverse Reactions: Allergies Allergy/AdvReac Type Severity Reaction Status Date / Time No Known Drug Allergies Allergy Verified 02/16/22 22:14 - Social History Does the pt smoke?: No Smoking Status: Never smoker Does the pt drink ETOH?: No Does the pt have substance abuse?: No - Immunizations Immunizations are current?: No - POLST Patient has POLST: No POLST Status: Full Code PD ED PE NORMAL - Vitals Vital signs reviewed: Yes - General General: Alert and oriented X 3, No acute distress, Well developed/nourished - HEENT HEENT: Atraumatic, PERRL, EOMI - Neck Neck: Supple, no meningeal sign - Abdomen Abdomen: Non tender, Non distended - Derm Derm: Normal color, Warm and dry - Extremities Extremities: No deformity - Neuro Neuro: No motor deficit, No sensory deficit - Psych Psych: Normal mood, Normal affect Results - Vitals Vitals: Vital Signs - 24 hr 02/16/22 02/16/22 02/16/22 22:09 22:30 22:35 Temperature 36.7 C Heart Rate 78 Respiratory 17 16 16 Rate Blood Pressure 161/87 H O2 Saturation 98 02/17/22 02/17/22 02/17/22 00:14 00:19 00:45 Temperature Heart Rate 77 75 Respiratory 16 16 16 Rate Blood Pressure 159/91 H 144/94 H O2 Saturation 99 95 02/17/22 02/17/22 01:03 01:08 Temperature Heart Rate 73 Respiratory 16 16 Rate Blood Pressure O2 Saturation 98 Oxygen O2 Source Room air - Labs Labs: Laboratory Tests 02/16/22 02/16/22 02/16/22 22:35 23:00 23:00 WBC 12.8 H RBC 4.82 Hgb 14.7 Hct 43.2 MCV 89.6 MCH 30.5 MCHC 34.0 RDW 12.5 Plt Count 262 MPV 9.0 Neut # (Auto) 8.4 H Lymph # (Auto) 2.4 [place] # (Auto) 1.2 H Eos # (Auto) 0.7 Baso # (Auto) 0.1 Absolute Nucleated RBC 0.00 Nucleated RBC % 0.0 Sodium 139 Potassium 3.3 L Chloride 101 Carbon Dioxide 30 Anion Gap 8.0 BUN 25 H Creatinine 1.0 Estimated GFR (MDRD) 77 L Glucose 112 H Calcium 9.1 Total Bilirubin 0.5 AST 29 ALT 41 Alkaline Phosphatase 106 Total Protein 7.2 Albumin 4.2 Globulin 3.0 Albumin/Globulin Ratio 1.4 Lipase 30 Urine Color RED/BLOODY Urine Clarity CLOUDY Urine pH 6.0 Ur Specific [place] >=1.030 H Urine Protein 30 H Urine Glucose (UA) NEGATIVE Urine Ketones TRACE Urine Occult Blood LARGE H Urine Nitrite NEGATIVE Urine Bilirubin NEGATIVE Urine Urobilinogen 1 (NORMAL) Ur Leukocyte Esterase NEGATIVE Urine RBC TNTC H Urine WBC 0-3 Ur Squamous Epith Cells NONE SEEN Urine Bacteria None Seen Ur Microscopic Review INDICATED Urine Culture Comments NOT INDICATED PD Medical Decision Making - ED course ED course: 56-year-old man who presents with gross hematuria and blood clot passage from the penile meatus. Lab work noncontributory with exception of mild leukocytosis. CT performed without acute findings. discussed gallstones incidental finding with patient. plan to f/u with outpatient urology. return precautions given. Departure - Departure Disposition: Home, Self Care Clinical Impression: Hematuria Condition: Good Instructions: Hematuria Poss Causes Follow-Up: Katheryn Laughlin MD [Physician No Access] - Comments: You are seen in the emergency department for evaluation of blood in the urine. Your CT showed gallstones but no other issues. Please follow-up with urology as an outpatient. You likely will need to have further testing to evaluate this further. Please return turn to the emergency department for new or worsening symptoms or other concerns.
[2022-02-17 00:45] VITALS: BP 144/94
--- NOTE | 2022-02-17 00:52 | CT Report ---
PROCEDURE: ABDOMEN/PELVIS W INDICATIONS: hematuria CONTRAST: Omni 300 100ml TECHNIQUE: After the administration of IV contrast, 5 mm thick sections acquired from the diaphragms to the symp hysis. 5 mm thick coronal and sagittal reformats were acquired. For radiation dose reduction, the f ollowing was used: automated exposure control, adjustment of mA and/or kV according to patient size. COMPARISON: None. FINDINGS: Image quality: Excellent. ABDOMEN: Lung bases: Lung bases are clear. Heart size is normal. Solid organs: Liver and spleen are normal in size and enhancement. Gallbladder demonstrates several small luminal stones without wall thickening. Biliary system is non dilated. Pancreas enhances nor mary ellen. No adrenal nodules. Kidneys demonstrate normal size and enhancement, without hydronephrosis. Peritoneum and bowel: Bowel loops demonstrate normal wall thickness and caliber. No free fluid or a ir. Nodes and vessels: No retroperitoneal or mesenteric adenopathy by size criteria. Aorta and inferior vena cava are normal in size. Miscellaneous: No ventral hernias. PELVIS: Genitourinary: Bladder wall thickness is normal. Miscellaneous: No inguinal hernias or adenopathy. Bones: No suspicious bony lesions. No vertebral body compression fractures. IMPRESSION: No renal, ureteral or bladder calculi. No visualized abnormal masses within the kidneys, ureter or bl adder. Cholelithiasis without imaging appearance of cholecystitis. Reviewed by: Radha Mota MD on 02/17/2022 1:00 AM PST Approved by: Radha Mota MD on 02/17/2022 1:00 AM PST Station ID: [id number]
== END 2022-02-17 01:31 | disposition home or self-care (01) ==
LOC: ED 21:50
DX: R31.0 Gross hematuria (principal); I25.10 Atherosclerotic heart disease of native coronary artery without angina pectoris; E78.00 Pure hypercholesterolemia, unspecified; Z95.1 Presence of aortocoronary bypass graft; D72.829 Elevated white blood cell count, unspecified; K80.20 Calculus of gallbladder without cholecystitis without obstruction
CPT/HCPCS: 36415; 74177; 80053; 81001; 83690; 85025; 99283; 99284; Q9967; 81003; 87086